=== PATIENT | female | born 1950 | race Caucasian/White ===

== ENCOUNTER 2024-08-21 11:37 | Emergency (ER) | payer MEDICARE ==
[~2024-08-21] VITALS: Ht 165.1 cm; Wt 63.5 kg
[2024-08-21] MEDS ORDERED: Sulfamethoxazole/Trimethopri 1 TAB TAB PO ONE (12:00)
[2024-08-21] MEDS ORDERED: Acetaminophen/Oxycodone 5 MG/325 MG TABLET PO ONE (12:00)
[2024-08-21] MEDS ORDERED: Ondansetron Hydrochloride 4 MG TAB PO ONE (12:50)
[2024-08-21] MEDS ORDERED: SEPTDS PO (12:55)
== END 2024-08-21 12:58 | disposition home or self-care (01) ==
LOC: ED 11:37
DX: L02.512 Cutaneous abscess of left hand (principal); Z88.1 Allergy status to other antibiotic agents

== ENCOUNTER 2024-10-22 12:43 | Emergency (ER) | payer MEDICARE, MEDICAID ==
[~2024-10-22] VITALS: Ht 165.1 cm; Wt 63.0 kg
[~2024-10-22 12:43] MED LIST: SEPTDS PO
[2024-10-22] MEDS ORDERED: CLARITIN10 MG PO (12:51)
[2024-10-22] MEDS ORDERED: MORPHINE Sulfate 2 MG/ML SYR IV ONE (13:05)
[2024-10-22] MEDS ORDERED: fentaNYL CITRATE 100 MCG/2 ML VIAL IV ONE (14:55)
[2024-10-22] MEDS ORDERED: HYDROCODONE-AC1 EAC1 PO (15:01)
[2024-10-22 15:20] VITALS: BP 134/72
== END 2024-10-22 15:30 | disposition home or self-care (01) ==
LOC: ED 12:43
DX: S52.501A Unspecified fracture of the lower end of right radius, initial encounter for closed fracture (principal); M25.571 Pain in right ankle and joints of right foot; M54.50 Low back pain, unspecified; M54.2 Cervicalgia; Z88.1 Allergy status to other antibiotic agents; Z79.899 Other long term (current) drug therapy; W11.XXXA Fall on and from ladder, initial encounter; Y93.89 Activity, other specified; Y92.89 Other specified places as the place of occurrence of the external cause; Y99.8 Other external cause status

== ENCOUNTER → 2025-02-16 | Outpatient (CLI) | payer MEDICARE, MEDICAID ==
[~2025-02-16] MED LIST changes: +CLARITIN10 MG PO; +HYDROCODONE-AC1 EAC1 PO
== END ==
LOC: CT 10:00
PROVIDERS: ATTEND Orthopaedic Surgery
DX: S52.571D Other intraarticular fracture of lower end of right radius, subsequent encounter for closed fracture with routine healing (principal); S52.551D Other extraarticular fracture of lower end of right radius, subsequent encounter for closed fracture with routine healing; M18.11 Unilateral primary osteoarthritis of first carpometacarpal joint, right hand; M25.741 Osteophyte, right hand; X58.XXXA Exposure to other specified factors, initial encounter; Y93.89 Activity, other specified; Y92.89 Other specified places as the place of occurrence of the external cause; Y99.8 Other external cause status